=== PATIENT | male | born 1970 | race Two or more races ===

== ENCOUNTER 2020-12-26 20:34 | Emergency (ER) | payer OTHER ==
[~2020-12-26] VITALS: Ht 172.7 cm; Wt 86.4 kg
--- NOTE | 2020-12-26 20:46 | NUR ---
Abd pain since last night. "Feels like I have to go to the bathroom but I can't." LBM last night. +nausea, denies vomiting. Patient is in NAD. Respirations even and unlabored.
[2020-12-26] MEDS ORDERED: ONDANSETRON ODT 4 MG PO ONE (21:00)
[2020-12-26] MEDS ORDERED: HYDROmorphone 1 MG/ML, 1ML INJ IM ONE (21:00)
[2020-12-26] MEDS ORDERED: ONDANSETRON ODT 4 MG ONE (21:01)
[2020-12-26] MEDS ORDERED: HYDROmorphone 1 MG/ML, 1ML INJ ONE (21:02)
[2020-12-26 21:07] LABS: BASOPHILS % (AUTO) 1 % (0-1); EOSINOPHILS % (AUTO) 2 % (1-7); LYMPHOCYTES % (AUTO) 33 % (22-44); MEAN CORPUSCULAR HEMOGLOBIN 30.8 pg (27.5-34.5); MEAN CORPUSCULAR HGB CONC 34.4 g/dL (33.2-36.2); MEAN PLATELET VOLUME 8.8 fL (7.4-10.4); MONOCYTES % (AUTO) 7 % (2-9); NEUTROPHILS % (AUTO) 57 % (42-75); PLATELET COUNT 217 x10^3/uL (130-400); RED BLOOD COUNT 4.75 x10^6/uL (4.38-5.82)
[2020-12-26 21:08] LABS: MD NO
[2020-12-26 21:17] LABS: ANION GAP 7 mmol/L (5-15); CALCIUM 8.5 mg/dL (8.5-10.1); CHLORIDE 106 mmol/L (98-107); CREATININE 1.36 mg/dL (0.7-1.3)
--- NOTE | 2020-12-26 21:52 | NUR ---
Report to BHAVANI Ravi. Patient care transferred.
[2020-12-26 21:56] LABS: MICROSCOPIC AUTO
--- NOTE | 2020-12-26 22:12 | NUR ---
patient down for CT
[2020-12-26] MEDS ORDERED: OMNIPAQUE 350 MG/ML, 100ML BOTTLE ONE (22:15)
--- NOTE | 2020-12-26 22:18 | NUR ---
PT NOW BACK FROM CT
--- NOTE | 2020-12-26 22:23 | NUR ---
patient returned from CT. family member at bedside. 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 RN to bedside to assess these reported complaints. patient reports dizziness with transfer to CT, and describes hallways to CT were windy and this is what made him dizzy. c/o lower abdominal pain 05/04 but presenting drowsy at this time with RR 12. will continue to monitor. call diehl in reach. all other VS remain stable.
[2020-12-26] MEDS ORDERED: KETOROLAC 30 MG/1 ML ONE (22:54)
[2020-12-26] MEDS ORDERED: KETOROLAC 30 MG/1 ML IVPush ONE (23:00)
--- NOTE | 2020-12-26 23:19 | NUR ---
discharge instructions reviewed with patient and at bedside. all questions answered to patient and patient's satisfaction. IV removed per dc protocol. work note provided per patient's request. patient reports mild pain relief post toradol admin. steady gait in room. all personal belongings with patient on dc. prescription handed directly to patient
[2020-12-26 23:21] VITALS: BP 136/85
== END 2020-12-26 23:23 | disposition home or self-care (01) ==
LOC: ED 21:14
DX: N13.2 Hydronephrosis with renal and ureteral calculous obstruction (principal); E78.5 Hyperlipidemia, unspecified
CPT/HCPCS: 36415; 74177; 80048; 81001; 85025; 96372; 96374; 99285; J1170; J1885; Q0162; Q9967